=== PATIENT | female | born 2000 | race Two or more races ===

== ENCOUNTER 2019-12-06 19:19 | Emergency (ER) | payer OTHER ==
[2019-12-06] MEDS ORDERED: ACETAMINOPHEN 325 MG TABLET PO ONE (19:31)
--- NOTE | 2019-12-06 19:36 | ER Document Report ---
ED Medical Screen (RME) - General Chief Complaint: OB Problem (<20wks) Stated Complaint: VAGINAL BLEEDING Time Seen by Provider: 12/06/19 19:28 Mode of Arrival: Ambulatory Information source: Patient Notes: Patient is 7 weeks G1, P0. Patient reports pelvic cramping for the past 4 weeks. Patient does report some vaginal discharge and vaginal spotting. Patient complains of some urinary frequency. No fever. I have greeted and performed a rapid initial assessment of this patient. A comprehensive ED assessment and evaluation of the patient, analysis of test results and completion of the medical decision making process will be conducted by additional ED providers. TRAVEL OUTSIDE OF THE [place] IN LAST 30 DAYS: No - Related Data Home Medications: prenatals, calcium, vitamin C Physical Exam - Vital signs Vitals: Temp Pulse Resp BP Pulse Ox 97.5 F 82 18 153/78 H 100 12/06/19 19:23 12/06/19 19:23 12/06/19 19:23 12/06/19 19:23 12/06/19 19:23 - Abdominal Tenderness: Tender - Lower pelvic Course - Vital Signs Vital signs: Temp Pulse Resp BP Pulse Ox 97.5 F 82 18 153/78 H 100 12/06/19 19:23 12/06/19 19:23 12/06/19 19:23 12/06/19 19:23 12/06/19 19:23
[2019-12-06 20:09] LABS: ABSOLUTE EOSINOPHILS # (AUTO) 0.1 10^3/uL (0.0-0.6); ABSOLUTE LYMPHOCYTES (AUTO) 2.3 10^3/uL (0.5-4.7); ABSOLUTE MONOCYTES (AUTO) 0.7 10^3/uL (0.1-1.4); ABSOLUTE NEUT (AUTO) 7.1 10^3/uL (1.7-8.2); BASOPHILS % (AUTO) 0.2 % (0-2); EOSINOPHILS % (AUTO) 0.7 % (0-6); HEMATOCRIT 37.1 % (36.0-47.0); HEMOGLOBIN 12.7 g/dL (12.0-15.5); LYMPHOCYTES % (AUTO) 22.6 % (13-45); MEAN CORPUSCULAR HGB CONC 34.3 g/dL (32.0-36.0); MEAN CORPUSCULAR VOLUME 85 fl (80-97); MONOCYTES % (AUTO) 6.5 % (3-13); PLATELET COUNT 389 10^3/uL (150-450); RED BLOOD COUNT 4.38 10^6/uL (3.72-5.28); RED CELL DISTRIBUTION WIDTH 14.2 % (11.5-14.0); TOTAL CELLS COUNTED % (AUTO) 100 %; WHITE BLOOD COUNT 10.1 10^3/uL (4.0-10.5)
[2019-12-06 20:30] LABS: APPEARANCE,URINE SLIGHTLY-CLOUDY; BILIRUBIN,URINE NEGATIVE (NEGATIVE); COLOR,URINE YELLOW; GLUCOSE, URINE NEGATIVE (NEGATIVE); KETONES,URINE NEGATIVE (NEGATIVE); LEUKOCYTE ESTERASE,URINE NEGATIVE (NEGATIVE); NITRITE,URINE NEGATIVE (NEGATIVE); PROTEIN,URINE NEGATIVE (NEGATIVE); URINE SPECIFIC GRAVITY 1.027; UROBILINOGEN,URINE NEGATIVE mg/dL (<2.0)
[2019-12-06 21:31] LABS: CHLAM PCR NOT DETECTED (NOT DETECT)
--- NOTE | 2019-12-06 21:39 | ER Document Report ---
ED General - General Chief Complaint: OB Problem (<20wks) Stated Complaint: VAGINAL BLEEDING Time Seen by Provider: 12/06/19 19:28 Mode of Arrival: Ambulatory Information source: Patient Notes: 19-year-old female arrives POV with chief complaint of being gravid x7 weeks. [place] which was positive for some ovarian cyst. She was told this was probably round ligament pain. Patient points to bilateral inguinal areas as being painful. Patient has a 39,700 beta hCG level. This is her first and she denies any ABGs in the past. Johan montaño reports she is had some spotting recently and some crampy belly for 4 weeks. She admits to some history of vaginal discharge. Her chlamydia and her GC test were negative here. Patient reports she will probably get a OB doctor [place] TRAVEL OUTSIDE OF THE [place] IN LAST 30 DAYS: No - HPI Onset: Other - Crampy abdomen for 4 weeks positive vaginal discharge - Related Data Allergies/Adverse Reactions: Penicillins Allergy (Verified 12/06/19 19:40) Sulfa (Sulfonamide Antibiotics) Allergy (Verified 12/06/19 19:40) Home Medications: prenatals, calcium, vitamin C Past Medical History - General Information source: Patient - Social History Smoking Status: Never Smoker Cigarette use (# per day): No Chew tobacco use (# tins/day): No Smoking Education Provided: No Frequency of alcohol use: None Drug Abuse: None Lives with: Family Family History: Reviewed & Not Pertinent Patient has suicidal ideation: No Patient has homicidal ideation: No Review of Systems - Review of Systems Constitutional: No symptoms reported EENT: No symptoms reported Cardiovascular: No symptoms reported Respiratory: No symptoms reported Gastrointestinal: See HPI, Abdominal pain Genitourinary: No symptoms reported Female Genitourinary: See HPI, Musculoskeletal: No symptoms reported Skin: No symptoms reported Hematologic/Lymphatic: No symptoms reported Neurological/Psychological: No symptoms reported Physical Exam - Vital signs Vitals: Temp Pulse Resp BP Pulse Ox 97.5 F 82 18 153/78 H 100 12/06/19 19:23 12/06/19 19:23 12/06/19 19:23 12/06/19 19:23 12/06/19 19:23 Interpretation: Hypertensive - General General appearance: Alert - HEENT Head: Normocephalic Eyes: Normal Conjunctiva: Normal Cornea: Normal Extraocular movements intact: Yes Eyelashes: Normal Pupils: PERRL Pharynx: Normal Neck: Normal - Respiratory Respiratory status: No respiratory distress Chest status: Nontender Breath sounds: Normal Chest palpation: Normal - Cardiovascular Rhythm: Regular Heart sounds: Normal auscultation Murmur: No Friction rub: No Suzanne's crunch: No - Abdominal Inspection: Normal Distension: No distension Bowel sounds: Normal Tenderness: Tender Organomegaly: No organomegaly - Back Back: Normal - Extremities General upper extremity: Normal inspection General lower extremity: Normal inspection - Neurological Neuro grossly intact: Yes Cognition: Normal Orientation: AAOx4 Moneta Coma Scale Eye Opening: Spontaneous Moneta Coma Scale Verbal: Oriented Hola Coma Scale Motor: Obeys Commands Moneta Coma Scale Total: 15 Speech: Normal Cranial nerves: Normal Cerebellar coordination: Normal Motor strength normal: LUE, RUE, LLE, RLE - Psychological Associated symptoms: Normal affect - Skin Skin Temperature: Warm Skin Moisture: Dry Course - Vital Signs Vital signs: Temp Pulse Resp BP Pulse Ox 97.5 F 80 18 130/71 H 100 12/06/19 19:23 12/06/19 22:42 12/06/19 19:23 12/06/19 22:42 12/06/19 19:23 - Laboratory Result Diagrams: 12/06/19 19:45 Laboratory results interpreted by me: 12/06/19 12/06/19 12/06/19 19:40 19:45 19:45 RDW 14.2 H Beta HCG, Quant 29736.00 H Urine Blood SMALL H - Diagnostic Test Radiology reviewed: Reports reviewed - Angle IUP with heart rate 147 and also right corpus luteal cyst Critical Care Note - Critical Care Note Total time excluding time spent on procedures (mins): 60 Comments: Orthostatics were within normal limits for this patient and patient called mother to check on whether she had hypertension of herself. This was negative according to patient's mother. Discharge - Discharge Clinical Impression: Qualifiers: Weeks of gestation: less than 8 weeks Qualified Code(s): Z3A.01 - Less than 8 weeks gestation of Abdominal pain Qualifiers: Abdominal location: right lower quadrant Qualified Code(s): R10.31 - Right lower quadrant pain Clinical Impression: (Ruled Out): Hypertension Condition: Good Disposition: HOME, SELF-CARE Additional Instructions: Follow-up with personal doctor return to ER as needed and follow-up also with OB doctor this week and may take Tylenol for pain. Avoid lifting bending or twisting. 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
[2019-12-06] MEDS ORDERED: ACETAMINOPHEN 325 MG TABLET ONE (22:30)
[2019-12-06 22:43] VITALS: BP 130/71
--- NOTE | 2019-12-06 23:41 | RADIOLOGY REPORT (SQ) ---
EXAM DESCRIPTION: US TRANSVAGINAL COMPLETED DATE/TME: 12/06/2019 19:30 CLINICAL HISTORY: 19 years, Female, pelvic cramping, spotting COMPARISON: None. TECHNIQUE: Emergent ultrasound LIMITATIONS: None. FINDINGS: The uterus measures 8.9 x 5.1 x 7.1 cm. There is an intrauterine gestational sac with pole. Heart tones obtained at 147 bpm. Yolk sac also present. Assessment of amniotic fluid volume and placenta is not performed due to early gestational age. The ovaries are not well seen likely due to their position in the pelvis. However, there is a 1.8 x 1.9 cm cyst of the right ovary likely reflecting corpus luteal cyst. The right ovary measures 4.3 x 2.5 x 3.8 cm. No solid adnexal mass. No free fluid. Normal flow to the right ovary. Current ultrasound age 7 weeks 2 days.. IMPRESSION: Single, live IUP as above. Nonemergent obstetric follow-up recommended copyright 2010 [employer] All Rights Reserved
== END 2019-12-07 00:10 | disposition home or self-care (01) ==
LOC: ER 19:19
DX: O34.81 Maternal care for other abnormalities of pelvic organs, first trimester (principal); N83.11 Corpus luteum cyst of right ovary; O26.851 Spotting complicating pregnancy, first trimester; O26.891 Other specified pregnancy related conditions, first trimester; R10.31 Right lower quadrant pain; N89.8 Other specified noninflammatory disorders of vagina; Z3A.01 Less than 8 weeks gestation of pregnancy; Z79.899 Other long term (current) drug therapy; Z88.0 Allergy status to penicillin; Z88.2 Allergy status to sulfonamides
CPT/HCPCS: 36415; 76817; 81001; 84702; 85025; 86900; 86901; 87491; 87591; 99285

== ENCOUNTER → 2020-02-17 | Outpatient (CLI) | payer OTHER ==
--- NOTE | 2020-02-17 12:54 | ER [facility] ASSESSMENT REPORT ---
Intake - In the Last 14 days Have you traveled outside [place]?: No Have you been in close contact with someone CONFIRMED: No Worked in Healthcare?: No - Symptoms Subjective Fever(Savage feverish): Yes Chills: Yes Muscule Aches: Yes Runny Nose: Yes Sore Throat: Yes Cough (New or worsening chronic cough): Yes Shortness of breath: Yes Nausea or Vomiting: Yes Headache: Yes Abdominal Pain: No Diarrhea(3 or more loose stools in last 24 hours): Yes - Do you have any of the following Chronic lung disease: Asthma or emphysema or COPD: No Cystic Fibrosis: No Diabetes: No High Blood Pressure: No Cardiovascular Disease: No Chronic Kidney Disease: No Chronic Liver Disease: No Chronic blood disorder like Sickle Cell Disease: No Weak immune system due to disease or medication: No Neurologic condition that limits movement: No Developmental delay - Moderate to Severe: No Recent (within past 2 weeks) or current : Yes Morbid Obesity (>100 pounds over ideal weight): No - Objective Temperature: 98.1 F Pulse Rate: 88 Respiratory Rate: 20 Blood Pressure: 112/59 O2 Sat by Pulse Oximetry: 97 Objective: Given above, testing performed: If Testing Performed: Test Specimen Type Sent to General - General Information source: Patient Notes: Patient presents to the [facility] for evaluation of upper respiratory symptoms and screening for the COVID virus. Patient is currently . - HPI Onset: Other - 02/11/2020 Onset/Duration: Gradual Associated symptoms: Body/muscle aches, Nonproductive cough, Fever, Nausea, Shortness of breath, Sore throat Similar symptoms previously: No Recently seen / treated by doctor: No - Related Data Allergies/Adverse Reactions: Penicillins Allergy (Verified 12/06/19 19:40) Sulfa (Sulfonamide Antibiotics) Allergy (Verified 12/06/19 19:40) Past Medical History - General Information source: Patient - Social History Smoking Status: Never Smoker Frequency of alcohol use: None Drug Abuse: None Family History: Reviewed & Not Pertinent - Medical History Medical History: Negative Past Surgical History: Reports: Hx Tonsillectomy Physical Exam - General General appearance: Appears well, Alert In distress: None - HEENT Head: Normocephalic Eyes: Normal Conjunctiva: Normal Nasal: Normal Mouth/Lips: Normal Mucous membranes: Normal Pharynx: Normal. No: Erythema, Exudate, Peritonsillar abscess Neck: Normal, Supple - Respiratory Respiratory status: No respiratory distress Chest status: Nontender Breath sounds: Normal. No: Rales, Rhonchi, Stridor, Wheezing Chest palpation: Normal - Cardiovascular Rhythm: Regular Heart sounds: S1 appreciated, S2 appreciated Murmur: No - Back Back: Normal - Extremities General upper extremity: Normal inspection, Normal ROM General lower extremity: Normal inspection, Normal ROM - Neurological Neuro grossly intact: Yes Cognition: Normal Hola Coma Scale Eye Opening: Spontaneous Hola Coma Scale Verbal: Oriented Hola Coma Scale Motor: Obeys Commands Hasty Coma Scale Total: 15 - Psychological Associated symptoms: Normal affect, Normal mood - Skin Skin Temperature: Warm Skin Moisture: Dry Skin Color: Normal Diagnostic Results Laboratory Results: The patient was evaluated during the global Covid 19 pandemic, and that diagnosis was suspected/considered upon their initial presentation. Their evaluation, treatment and testing was consistent with current guidelines for patients who present with complaints or symptoms that may be related to Covid 19. Patient presents with upper respiratory symptoms worrisome for possible Covid 19. Patient does not have emergency worrying symptoms such as difficulty breathing, shortness of breath, chest pain, pressure, confusion or cyanosis. Patient appears suitable for discharge as they are not of an advanced age, do not have any chronic medical conditions such as diabetes, CAD, immune deficiency, chronic lung disease or chronic kidney disease. Patient's vital signs are stable and patient is nontoxic in appearance. Good return precautions have been discussed with patient, patient verbalized understanding and is agreeable with discharge plan of care at this time. Patient Education/Counseling Counseling/Education: Patient was provided with discharge information including: As a person under investigation for Covid 19, the [place] department of Health and Human Services, division of public health advises you to adhere to the following guidance until your test results are reported to you. If your test result is positive, you will receive additional information from your provider and your local health department at that time. Remain at home until you are cleared by the health provider or public health authorities. Keep a log of visitors to your home, notify any visitors to your home of your isolation status. If you plan to move to a new address or leave the county, notify the local health department in your County. Call your doctor or seek care if you have an urgent medical need. Before seeking medical care, call ahead to get instructions from the provider before arriving at the medical office clinic or hospital. Notify them that you are being tested for the virus that causes Covid 19 so that arrangements can be made, as necessary, to prevent transmission to others in the healthcare setting. Next, notify the local health department in your county. If a medical emergency arises and you need to call 911, inform the first responders that you are being tested for the virus that causes Covid 19. Next, notify the local health department in your county. [facility] Discharge - Discharge Clinical Impression: covid 19 screening Upper respiratory infection Qualifiers: URI type: unspecified URI Qualified Code(s): J06.9 - Acute upper respiratory infection, unspecified Condition: Stable Disposition: Home; Selfcare
[2020-02-17 13:41] LABS: A TYPE INFLUENZA AG NEGATIVE (NEGATIVE); B INFLUENZA AG NEGATIVE (NEGATIVE)
[2020-02-17 14:11] VITALS: BP 112/59
== END ==
LOC: RDC 12:38
PROVIDERS: ATTEND Nurse Practitioner Family
DX: O99.519 Diseases of the respiratory system complicating pregnancy, unspecified trimester (principal); Z20.828 Contact with and (suspected) exposure to other viral communicable diseases; J02.9 Acute pharyngitis, unspecified; R50.9 Fever, unspecified; R05 Cough; R06.02 Shortness of breath; R11.0 Nausea; R51 Headache; R19.7 Diarrhea, unspecified; M79.10 Myalgia, unspecified site; Z88.0 Allergy status to penicillin; Z88.2 Allergy status to sulfonamides
CPT/HCPCS: 87070; 87635; 87804; 87880; 99201; 99211